=== PATIENT | female | born 1950 | race Caucasian/White ===

== ENCOUNTER → 2024-12-31 07:47 | Outpatient (REF) | payer MEDICARE, OTHER, SELFPAY | LOC: RAD 07:47 | PROVIDERS: ATTENDING PHYSICIAN Internal Medicine Rheumatology; FAMILY PHYSICIAN Nurse Practitioner Adult Health | DX: M81.0 Age-related osteoporosis without current pathological fracture (principal); Z13.820 Encounter for screening for osteoporosis | CPT/HCPCS: 77080 ==

== ENCOUNTER → 2025-02-03 13:24 | Outpatient (REF) | payer MEDICARE, OTHER, SELFPAY | LOC: WDC 13:24 | PROVIDERS: ATTENDING PHYSICIAN Nurse Practitioner Adult Health | DX: Z12.31 Encounter for screening mammogram for malignant neoplasm of breast (principal) | CPT/HCPCS: 77063; 77067 ==